=== PATIENT | female | born 1965 | race Two or more races ===

== ENCOUNTER 2017-04-22 05:47 | Day surgery (SDC) | payer MEDICARE, OTHER ==
[2017-04-18 13:06] LABS: HEMATOCRIT 38.3 % (36.0-48.0); HEMOGLOBIN 12.2 g/dL (12.0-16.0)
[2017-04-18 13:22] LABS: BUN (BLOOD UREA NITROGEN) 18 MG/DL (6-23); CALCIUM, SERUM 8.8 MG/DL (8.5-10.4); CHLORIDE, SERUM 107 MMOL/L (96-112); CO2 (CARBON DIOXIDE) 31 MMOL/L (24-34); CREATININE 0.89 MG/DL (0.55-1.02); GFR AFRICAN AMERICAN 88 ML/MIN (>=60); GFR NON AFRICAN AMERICAN 76 ML/MIN (>=60); GLUCOSE, SERUM 89 MG/DL (60-99); SODIUM, SERUM 141 MMOL/L (135-148)
[~2017-04-22] VITALS: Ht 147.3 cm; Wt 83.9 kg
--- NOTE | ~2017-04-22 | OP ---
Record Of Operation [facility] [address] [place]. [address] NAME: FRANCISCO DA SILVA I : 67 STATUS : [facility]#: [id number] AGE: 51 ADM/REG DATE : 04/22/17 MR#: [id number] REPORT SERV DATE: 04/22/17 DICTATED BY: MALCOLM CREWS DATE: 04/22/17 REPORT STATUS : Draft TRANSCRIBED BY: MODL DATE: 04/22/17 DATE OF PROCEDURE: PREOPERATIVE DIAGNOSIS: Painful retained hardware (spinal column stimulator and battery). POSTOPERATIVE DIAGNOSIS: Painful retained hardware (spinal column stimulator and battery). PROCEDURE: 1. Navigation-assisted surgery. 2. Hardware removal including the spinal column stimulator battery and percutaneous epidural leads x2. CHANNEL LIP WETTER: Hussain Lam. ANESTHESIA: General. BLOOD LOSS: 10 mL. INDICATIONS FOR SURGERY: A 51-year-old female with previous lumbar surgery elsewhere. She developed a post laminectomy syndrome and ultimately she had a spinal column stimulator placed percutaneously by another physician elsewhere. The stimulator is no longer working, and due to other health issues, the patient will likely be in need of MRIs in the future. Since it is nonfunctioning and there was no benefit, she is desired for the hardware to be removed. Today, she is brought to surgery for hardware removal. The risks, benefits, alternatives, and expectations were explained including everything up to and including paralysis, infection, hematoma. Consent form is signed. DESCRIPTION OF PROCEDURE: The patient was identified in the preop holding area. Antibiotic prophylaxis was given. Neurophysiology monitoring leads were inserted. The patient was brought to the operative suite. General anesthetic including endotracheal intubation administered. She was placed prone on a José Antonio spine frame. Bony prominences were carefully padded. Thoracolumbar spine was scrubbed with Hibiclens solution, DuraPrep was painted, and sterile drapes applied. Intraoperative CT scan with O-arm obtained, CT information was used to register the navigational system. With navigational assistance, I identified the battery. A transverse incision was carried out in subcutaneous pocket that the battery was localized. Pseudocapsule was opened and the battery was removed. I then dissected out all of the connecting cable. I released the stabilizer that was attached and the percutaneous leads were removed without difficulty. I did not have to use force, etc., to remove and they were easily removed. Wounds were irrigated. Standard wound closure was carried out. Sterile dressings were applied. The patient returned to supine position, awakened, extubated, and taken to recovery room in satisfactory condition having tolerated the procedure well. Record Of Operation [facility] [address] [place]. [address] NAME: FRANCISCO DA SILVA I : 67 STATUS : [facility]#: [id number] AGE: 51 ADM/REG DATE : 04/22/17 MR#: [id number] REPORT SERV DATE: 04/22/17 DICTATED BY: MALCOLM CREWS DATE: 04/22/17 REPORT STATUS : Draft TRANSCRIBED BY: HOLLIE DATE: 04/22/17 Sponge, needle, and instrument counts were correct. No intraoperative complications noted. /HOLLIE Malcolm Crews D.O. / [id number] CC: Steffen Wood MATTHEW J.
[~2017-04-22 05:47] MED LIST: ADDERALL20 MG PO; BUSPAR30 MG PO; CARDCD240 PO; COZAAR100 MG PO; DEMA20 PO; DOXEPIN HCL100 MG PO; ELIQUIS 2.5 MG2.5 MG PO; ESTRADIOL2 MG PO; LIPITOR40 PO; LOP50 PO; NEUR300 PO; PROVIGIL2 PO; SEV VITAMINS PO; SONATA10 MG PO; SPIRO25 PO; TOPXL100 PO; TOVIAZ8 MG PO; VOTRIENT200 MG PO; ZANAFLEX 4 MG TA4 MG PO
== END 2017-04-22 11:59 | disposition home or self-care (01) ==
LOC: SDC 05:47 → EDBD 13:00
PROVIDERS: Orthopaedic Surgery Orthopaedic Surgery of the Spine
PROC: 0JPT0MZ Removal of Stimulator Generator from Trunk Subcutaneous Tissue and Fascia, Open Approach (ICD-10-PCS; 2017-04-22)
PROC: 00PU3MZ Removal of Neurostimulator Lead from Spinal Canal, Percutaneous Approach (ICD-10-PCS; principal; 2017-04-22 06:45)
DX: T85.840A Pain due to nervous system prosthetic devices, implants and grafts, initial encounter (principal); I10 Essential (primary) hypertension; J45.909 Unspecified asthma, uncomplicated; E66.9 Obesity, unspecified; F41.9 Anxiety disorder, unspecified; F32.9 Major depressive disorder, single episode, unspecified; Z68.38 Body mass index [BMI] 38.0-38.9, adult; Z88.8 Allergy status to other drugs, medicaments and biological substances; Z87.891 Personal history of nicotine dependence; Z98.1 Arthrodesis status; Z98.84 Bariatric surgery status; Z90.710 Acquired absence of both cervix and uterus; Z98.890 Other specified postprocedural states; Z79.899 Other long term (current) drug therapy
CPT/HCPCS: 80048; 85014; 85018; 88300; 93005; A9270-GY; J0330; J0690; J0735; J2250; J2405; J3010; J3370